=== PATIENT | female | born 1985 | race Caucasian/White ===

== ENCOUNTER 2018-07-31 08:07 | Day surgery (SDC) | payer MEDICAID ==
[2018-07-24 15:02] LABS: BASOPHILS % (AUTO) 0.7 % (0-1); EOSINOPHILS # (AUTO) 0.2 X10'3 (0-0.9); EOSINOPHILS % (AUTO) 3.2 % (0-6); LYMPHOCYTES # (AUTO) 2.1 X10'3 (1.1-4.8); LYMPHOCYTES % (AUTO) 34.3 % (21-51); MEAN CORPUSCULAR HEMOGLOBIN 23.6 PG (27.0-31.0); MEAN CORPUSCULAR HGB CONC 31.5 % (33.0-36.5); MEAN CORPUSCULAR VOLUME 75.1 FL (78-98); MEAN PLATELET VOLUME 11.6 FL (7.4-10.4); MONOCYTES # (AUTO) 0.5 X10'3 (0-0.9); MONOCYTES % (AUTO) 8.4 % (2-12); NEUTROPHILS # (AUTO) 3.2 X10'3 (1.8-7.7); NEUTROPHILS % (AUTO) 53.4 % (42-75); PRE OP HEMATOCRIT 34.3 % (35.0-45.0); PRE OP PLATELET COUNT 216 X10'3 (140-440); RED BLOOD COUNT 4.57 X10'6 (4.20-5.60)
[2018-07-24 15:03] LABS: PRE OP HEMOGLOBIN 10.8 g/dL (12.0-16.0)
[2018-07-24 15:17] LABS: ALBUMIN 3.9 G/DL (3.4-5.0); ALBUMIN/GLOBULIN RATIO 1.3 (1.1-1.5); ALKALINE PHOSPHATASE 76 IU/L (46-116); BLOOD UREA NITROGEN 10 MG/DL (7-18); BUN/CREATININE RATIO 14.9 (6.6-38.0); CALCIUM 8.9 MG/DL (8.5-10.1); CHLORIDE 104 MMOL/L (99-107); CREATININE 0.67 MG/DL (0.40-0.90); PRE OP ALT 25 U/L (30-65); PRE OP ANION GAP 8 (8-16); PRE OP AST 9 U/L (10-37); PRE OP BILIRUB, TOTAL 0.2 MG/DL (0.0-1.0); PRE OP GLUCOSE 115 MG/DL (70-104); PRE OP POTASSIUM 3.8 MMOL/L (3.4-5.1); PRE OP SODIUM 139 MMOL/L (135-145); TOTAL CARBON DIOXIDE 27.2 MMOL/L (24-32); eGFR > 90 ML/MIN
[2018-07-24 15:19] LABS: LARGE PLATELETS FEW; PLATELET ESTIMATE NORMAL
[2018-07-24 15:23] LABS: HCG SERUM QL NEGATIVE
[2018-07-31] VITALS (7 sets, daily range): BP systolic 100–133; BP diastolic 56–96
[~2018-07-31] VITALS: Ht 167.6 cm; Wt 69.0 kg
[~2018-07-31 08:07] MED LIST: Cefazolin 2GM/50ML dext iso,osmotic IVPB IV ONE; famotidine 20mg tablet PO ONE; ringers solution, lacted 1,000 ML IV SCH
[2018-07-31] MEDS ORDERED: LIDOcaine 1% (10mg/ml) 2ml vial ONE (08:23)
[2018-07-31] MEDS ORDERED: NO HOME MEDS (09:00)
[2018-07-31] MEDS ORDERED: BUPIVAcaine/PF 2.5mg/ml (0.25%) 10ml vial ONE (10:07)
[2018-07-31] MEDS ORDERED: epiNEPHrine 1 mg/ml inj ONE (10:07)
[2018-07-31] MEDS ORDERED: sevoflurane 250ml liquid IH ONE (10:47)
[2018-07-31] MEDS ORDERED: neostigmine methylsulfate 1 MG/ML 10ml vial ONE (10:47)
[2018-07-31] MEDS ORDERED: glycopyrrolate 0.2mg/ml inj ONE (10:47)
[2018-07-31] MEDS ORDERED: fentaNYL/PF 50MCG/1 ML 2ML syringe ONE (10:51)
[2018-07-31] MEDS ORDERED: midazolam 2 mg/2 ml injection ONE (10:51)
[2018-07-31] MEDS ORDERED: rocuronium 10mg/ml inj IV ONE (11:02)
[2018-07-31] MEDS ORDERED: propofol inj 20 ML IV ONE (11:02)
[2018-07-31] MEDS ORDERED: LIDOcaine 2% (20mg/ml) 5ml vial ONE (11:02)
[2018-07-31] MEDS ORDERED: dexamethasone sod phosphate 4mg/ml inj. ONE (11:03)
[2018-07-31] MEDS ORDERED: ondansetron/PF 4mg/2ml inj ONE (11:38)
== END 2018-07-31 12:40 | disposition home or self-care (01) ==
LOC: PAS 08:07
PROVIDERS: ATTEND Obstetrics & Gynecology
DX: Z30.2 Encounter for sterilization (principal); F17.210 Nicotine dependence, cigarettes, uncomplicated; Z88.2 Allergy status to sulfonamides; Z86.2 Personal history of diseases of the blood and blood-forming organs and certain disorders involving the immune mechanism; Z88.1 Allergy status to other antibiotic agents; Z98.890 Other specified postprocedural states; Z88.8 Allergy status to other drugs, medicaments and biological substances
CPT/HCPCS: 36415; 58670; 80053; 84703; 85025; A6258; A6402; J0171; J0690; J1100; J2001; J2250; J2405; J2704; J2710; J3010; J3490; J7120; A7000